=== PATIENT | female | born 1990 | race African-American/Black ===

== ENCOUNTER 2016-08-30 12:16 | Emergency (ER) | payer BC, OTHER ==
[~2016-08-30] VITALS: Ht 175.3 cm; Wt 44.9 kg
[2016-08-30 12:23] VITALS: BP 112/75
[2016-08-30] MEDS ORDERED: CLIN-44 PO (12:45)
--- NOTE | 2016-08-30 12:45 | PHYS DOC ---
Past Medical History Past Medical History: No Pertinent History Past Surgical History: No Surgical History Alcohol Use: None Drug Use: None Adult General Chief Complaint Chief Complaint: CELLULITIS HPI HPI Patient is a 25 year old female who presents with cellulitis of the right forearm that began 3 days ago. Patient denies any fever. Patient states the area started as a small pimple on the right wrist and grew bigger. Patient denies any history of IV drug use. Review of Systems Review of Systems Constitutional: See history of present illness Eyes: Denies change in visual acuity, redness, or eye pain [] Musculoskeletal: Denies back pain or joint pain [] Integument: Right forearm cellulitis Neurologic: Denies headache, focal weakness or sensory changes [] Endocrine: Denies polyuria or polydipsia [] Allergies Allergies Allergies Coded Allergies Type Severity Reaction Last Updated Verified No Known Drug Allergies 02/16/15 No Physical Exam Physical Exam Constitutional: Well developed, well nourished, no acute distress, non-toxic appearance. [] HENT: Normocephalic, atraumatic, bilateral external ears normal, oropharynx moist, no oral exudates, nose normal. [] Abdomen: Bowel sounds normal, soft, no tenderness, no masses, no pulsatile masses. [] Skin: Right ventral wrist with an area of redness consistent with cellulitis approximately 5 x 3 cm long, there is a streak of redness stretching from this area to the right AC consistent with cellulitis. There is no open wounds to the area. +2 right radial pulse. Cap refill less than 2 seconds the right upper extremity. Adequate sensation to the right upper extremity. Back: No tenderness, no CVA tenderness. [] Extremities: No tenderness, no cyanosis, no clubbing, ROM intact, no edema. [] Neurologic: Alert and oriented X 3, normal motor function, normal sensory function, no focal deficits noted. [] Psychologic: Affect normal, judgement normal, mood normal. [] Current Patient Data Vital Signs Vital Signs Date Time Temp Pulse Resp B/P Pulse Ox O2 Delivery O2 Flow Rate FiO2 08/30/16 12:23 98.1 78 16 100 Room Air 98.1 EKG EKG [] Radiology/Procedures Radiology/Procedures [] Course & Med Decision Making Course & Med Decision Making Pertinent Labs and Imaging studies reviewed. (See chart for details) Patient has cellulitis of the right upper extremity. Discharged with clindamycin. She is afebrile. Boostrix given in the ED. Provided return precautions and discharged in stable condition. Carla Disclaimer Carla Disclaimer This electronic medical record was generated, in whole or in part, using a voice recognition dictation system. Departure Departure Impression: Primary Impression: Cellulitis of forearm, right Disposition: 01 HOME, SELF-CARE Condition: STABLE Referrals: UNKNOWN PCP NAME (PCP) Please follow-up with your own doctor in 1-2 weeks. Patient Instructions: Cellulitis Additional Instructions: You were seen for cellulitis of the right forearm, keep the area clean and dry. Please complete your antibiotics. Come back to the ED at any point the redness increases, or you develop a fever. Come back to the ED if you have any other concerning symptoms. Follow-up with your doctor in the next 7 days. Scripts Clindamycin Hcl 150 Mg Capsule3 Cap PO TID #90 CAP Prov:JOAN CALLE APRN 08/30/16 JOAN CALLE APRN Aug 30, 2016 12:45
[2016-08-30] MEDS ORDERED: DIPHTH,PERTUSS(ACELL),TET TOX 0.5 ML DISP.SYRIN. VAX IM ONE (13:00)
== END 2016-08-30 12:59 | disposition home or self-care (01) ==
LOC: ER 12:16
DX: L03.113 Cellulitis of right upper limb (principal)
CPT/HCPCS: 90471; 90715; 99283-25